=== PATIENT | male | born 1990 | race Caucasian/White ===

== ENCOUNTER → 2018-10-23 | Outpatient (REF) | payer BC ==
[2018-10-24 13:03] LABS: CHLAMYDIA DNA AMPLIFICATION NEGATIVE (NEGATIVE); GC DNA AMPLIFICATION NEGATIVE (NEGATIVE)
[2018-10-25 13:47] LABS: HIV 1&2 SCREEN CENTAUR NEGATIVE (NEGATIVE)
== END ==
LOC: M SFHCCLAY 14:38
PROVIDERS: ATTEND Family Medicine
DX: Z72.51 High risk heterosexual behavior (principal); Z11.3 Encounter for screening for infections with a predominantly sexual mode of transmission
CPT/HCPCS: 87389; 87491; 87591; G0472

== ENCOUNTER → 2019-12-24 | Outpatient (REF) | payer BC ==
[2019-12-24 17:18] LABS: HIV 1&2 SCREEN CENTAUR NEGATIVE (NEGATIVE)
[2019-12-24 17:51] LABS: CHLAMYDIA DNA AMPLIFICATION NEGATIVE (NEGATIVE); GC DNA AMPLIFICATION NEGATIVE (NEGATIVE)
== END ==
LOC: M SFHCCLAY 09:46
PROVIDERS: ATTEND Family Medicine
DX: Z11.4 Encounter for screening for human immunodeficiency virus [HIV] (principal); Z72.51 High risk heterosexual behavior